=== PATIENT | male | born 1985 | race Two or more races ===

== ENCOUNTER 2023-03-07 11:32 | Emergency (ER) | payer BC, OTHER ==
[~2023-03-07] VITALS: Ht 175.3 cm; Wt 74.7 kg
[2023-03-07] MEDS ORDERED: KETOROLAC TROMETH 60MG/2ML VIAL IM ONE (12:30)
[2023-03-07] MEDS ORDERED: IBU600T PO (13:49)
[2023-03-07] MEDS ORDERED: CYCLOBENZAPRINE HCL 10 MG TAB PO ONE (14:00)
[2023-03-07 14:06] VITALS: BP 136/83; PULSE 94; RESP 18; TEMP 97.6; O2SAT 97
== END 2023-03-07 14:12 | disposition home or self-care (01) ==
LOC: ER 11:32
DX: S33.5XXA Sprain of ligaments of lumbar spine, initial encounter (principal); Z88.1 Allergy status to other antibiotic agents; Z88.8 Allergy status to other drugs, medicaments and biological substances; X50.3XXA Overexertion from repetitive movements, initial encounter; Y93.89 Activity, other specified; Y92.89 Other specified places as the place of occurrence of the external cause; Y99.8 Other external cause status
CPT/HCPCS: 72131